=== PATIENT | female | born 1960 | race Hispanic/Latino ===

== ENCOUNTER → 2019-02-21 | Outpatient (CLI) | payer OTHER ==
[~2019-02-21] MED LIST: ASPI-1012 PO; ATOR40TA71 PO; INSU100I21 SQ; LEVO125 PO; LISI10TA7 PO; METF-444 PO; OXYB10TA4 PO; SERT50TA12 PO; victoza SQ
== END | disposition home or self-care (01) ==
LOC: RAH 09:48
PROVIDERS: ATTEND Internal Medicine
DX: Z12.31 Encounter for screening mammogram for malignant neoplasm of breast (principal)
CPT/HCPCS: 77067

== ENCOUNTER → 2024-02-19 | Outpatient (CLI) | payer OTHER ==
[~2024-02-19] MED LIST changes: -INSU100I21 SQ; +INSU100I22 SQ; +LISI10TA24 PO; -LISI10TA7 PO; +SERT-439 PO; -SERT50TA12 PO
== END | disposition home or self-care (01) ==
LOC: RAH 11:41
PROVIDERS: ATTEND Internal Medicine
DX: Z12.31 Encounter for screening mammogram for malignant neoplasm of breast (principal)
CPT/HCPCS: 77067

== ENCOUNTER → 2025-03-16 | Outpatient (CLI) | payer OTHER ==
--- NOTE | 2025-03-16 11:36 | HMCIMG ---
MAMMO SCREENING BILATERAL HISTORY: Screening mammogram. COMPARISON: 02/19/2024 TECHNIQUE: Bilateral screening mammogram with CAD was performed with craniocaudal and mediolateral oblique projections. FINDINGS: There are scattered areas of fibroglandular density. There is no evidence of a dominant mass, or suspicious microcalcification. There is no evidence of nipple retraction or skin thickening. IMPRESSION: 1. Stable mammogram. Patient was entered into a reminder system with a target due date for their next mammogram. BI-RADS: CATEGORY 2: BENIGN FINDINGS Recommend monthly self breast exam as well as annual clinical examination. A negative x-ray should not delay biopsy if a dominant or clinically suspicious mass is present, since 8-10% of cancers are not identified by mammography. Dense breasts particularly, may obscure an underlying neoplasm. Some of these may be detected clinically and therefore, clinical examination is an essential part of breast evaluation.
== END | disposition home or self-care (01) ==
LOC: RAH 10:50
PROVIDERS: ATTEND Internal Medicine
DX: Z12.31 Encounter for screening mammogram for malignant neoplasm of breast (principal); R92.323 Mammographic fibroglandular density, bilateral breasts
CPT/HCPCS: 77067